=== PATIENT | female | born 2000 | race Hispanic/Latino ===

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

== ENCOUNTER 2019-07-10 15:00 | Emergency (ER) | payer OTHER ==
[~2019-07-10] VITALS: Ht 157.5 cm; Wt 87.3 kg
[~2019-07-10 15:00] MED LIST changes: +NEXIUM40 M1 PO; +ZOFRAN ODT4 MG PO
[2019-07-10 15:04] VITALS: BP 124/68
[2019-07-10] MEDS ORDERED: BACTRIM DS1 TAB PO (15:28)
[2019-07-10] MEDS ORDERED: CEPHALEXIN500 M1 PO (15:28)
== END 2019-07-10 15:37 | disposition home or self-care (01) ==
LOC: ED 15:00
DX: L03.113 Cellulitis of right upper limb (principal)

== ENCOUNTER 2019-11-24 | Emergency (ER) | payer SELFPAY ==
[~2019-11-24] MED LIST changes: +BACTRIM DS1 TAB PO; +CEPHALEXIN500 M1 PO
[2019-11-24] MEDS ORDERED: MOTRIN400 MG PO (07:31)
== END 2019-11-24 07:43 | disposition home or self-care (01) | DRG 914 ==
DX: S09.8XXA Other specified injuries of head, initial encounter (principal); Y04.2XXA Assault by strike against or bumped into by another person, initial encounter; Y92.009 Unspecified place in unspecified non-institutional (private) residence as the place of occurrence of the external cause

== ENCOUNTER 2020-08-13 22:40 | Emergency (ER) | payer OTHER ==
[~2020-08-13] VITALS: Ht 162.6 cm; Wt 92.0 kg
[~2020-08-13 22:40] MED LIST changes: +MOTRIN400 MG PO
[2020-08-13 23:37] LABS: URINE BILIRUBIN - DIPSTICK NEGATIVE (NEGATIVE); URINE BLOOD DIPSTICK NEGATIVE (NEGATIVE); URINE COLOR YELLOW; URINE GLUCOSE - DIPSTICK NEGATIVE (NEGATIVE); URINE KETONE NEGATIVE (NEGATIVE); URINE LEUK ESTERASE NEGATIVE (NEGATIVE); URINE NITRITE - DIPSTICK NEGATIVE (Negative); URINE PROTEIN - DIPSTICK NEGATIVE (NEG-TRACE); URINE SPECIFIC GRAVITY >=1.030; URINE UROBILINOGEN - DIPSTICK 0.2 E.U./dL (0.2)
[2020-08-14] MEDS ORDERED: OB COMPLET2 PO (00:25)
[2020-08-14 00:30] VITALS: BP 121/56
== END 2020-08-14 00:30 | disposition home or self-care (01) ==
LOC: ED 22:40
PROVIDERS: Family Medicine
DX: O9A.212 Injury, poisoning and certain other consequences of external causes complicating pregnancy, second trimester (principal); S39.011A Strain of muscle, fascia and tendon of abdomen, initial encounter; X50.0XXA Overexertion from strenuous movement or load, initial encounter; Z3A.26 26 weeks gestation of pregnancy